=== PATIENT | male | born 1960 | race Caucasian/White ===

== ENCOUNTER 2017-11-20 16:25 | Inpatient (IN) | payer OTHER ==
[~2017-11-20 16:25] MED LIST: ISOVUE-370 76%-LOCM 1 ML ONE
[2017-11-20 16:56] LABS: #Eosinphils 0.1 thou/uL (0.0-0.7); #Lymphocytes 0.4 thou/uL (1.20-3.40); #Monocytes 0.3 thou/uL (0.11-0.59); #Neutrophils 8.6 thou/uL (1.40-6.50); %Basophils 0.3 % (0.0-1.0); %Eosinophils 0.8 % (0.0-10.0); %Lymphocytes 4.6 % (21.0-51.0); %Monocytes 3.2 % (0.0-10.0); %Neutrophils 91.1 % (42.0-75.0); Hemoglobin 16.5 g/dL (14.0-18.0); Mean Corpuscular HGB CONC 33.9 g/dL (32.0-36.0); Mean Corpuscular Volume 94.3 fl (80.0-94.0); Mean Platelet Volume 9.4 fL (7.4-10.4); Platelet Count 136 thou/uL (130-400); RBC Distribution Width 11.6 % (11.5-14.5); Red Blood Cell (RBC) Count 5.15 mill/uL (4.70-6.10); White Blood Cell (WBC) Count 9.4 thou/uL (4.8-10.8)
[2017-11-20 17:17] LABS: ALT (SGPT) 50 U/L (8-55); AST (SGOT) 24 U/L (5-34); Albumin 4.3 g/dL (3.5-5.0); Alkaline Phosphatase 78 U/L (40-150); Anion Gap 11 mmol/L (10-20); BUN (Urea Nitrogen) 14 mg/dL (8.4-25.7); Bilirubin, Total 0.6 mg/dL (0.2-1.2); CK (CPK) 104 U/L (30-200); Calc. Creatinine Clearance 0 mL/min (70-130); Calcium 9.3 mg/dL (7.8-10.44); Carbon Dioxide 26 mmol/L (22-29); Chloride 104 mmol/L (98-107); Estimated GFR-MDRD Greater than 90; Globulin 2.6 g/dL (2.4-3.5); Glucose 110 mg/dL (70-105); Lipase 13 U/L (8-78); Magnesium 1.9 mg/dL (1.6-2.6); Protein, Total 6.9 g/dL (6.0-8.3); Sodium 137 mmol/L (136-145)
--- NOTE | 2017-11-20 17:18 | RAD ---
RADIOGRAPH CHEST 1 VIEW: 11/20/17 HISTORY: 57-year-old male with cough and nausea. FINDINGS: There is no air space density, pulmonary edema, or pneumothorax. The lateral costophrenic angles are sharp. IMPRESSION: No acute pulmonary findings. ailyn [] POS: [facility]
[2017-11-20 17:21] LABS: CKMB 1.3 ng/mL (0-6.6); Troponin I 0.012 ng/mL (< 0.028)
[2017-11-20] MEDS ORDERED: Ondansetron HCl/PF 4 MG/2 ML Vial ONE (17:22)
[2017-11-20 18:55] LABS: Bilirubin Negative (Negative); Blood, Urine Negative (Negative); Clarity CLEAR (Clear); Glucose, Urine (Dipstick) Negative (Negative); Leukocyte Negative (Negative); Nitrite Negative (Negative); Protein, Urine (Dipstick) Negative (Neg-Trace); Urobilinogen 0.2 mg/dL (0.2-1.0); pH, Urine 5.5 (5.0-9.0)
--- NOTE | 2017-11-20 18:59 | CT ---
CT ANGIOGRAM THORAX WITH IV CONTRAST AND 3D RECONSTRUCTIONS 11/20/17 HISTORY: Nausea and diarrhea which started today. Elevated D-dimer. FINDINGS: The heart is mildly enlarged. The thoracic aorta is normal in caliber without evidence of an aortic d issection. No filling defects are seen in the pulmonary arteries to suggest a pulmonary embolus. There is bibasilar atelectasis. No discrete pulmonary nodule, mass or pleural effusion is seen in the lungs bilaterally. There is no evidence of lymphadenopathy. The visualized upper abdomen has a normal CT appearance. Degenerative changes are noted in the spine. IMPRESSION: 1. No CT evidence of a pulmonary embolus. 2. Mild cardiomegaly. POS: [facility]
[2017-11-20 19:05] LABS: Amphetamine Not Detected (NotDetected); Barbiturates Screen Not Detected (NotDetected); Benzodiazepine Screen Not Detected (NotDetected); Cocaine Metabolite Screen Not Detected (NotDetected); Medtox Control Line Valid? VALID (VALID); Medtox Reader # READER 1; Methadone Not Detected (NotDetected); Methamphetamine Not Detected (NotDetected); Opiate Screen Not Detected (NotDetected); Oxycodone Screen Not Detected (NotDetected); Phencyclidine (PCP) Not Detected (NotDetected); THC/Cannabinoid Screen Not Detected (NotDetected); Tricyclic Screen Not Detected (NotDetected)
[2017-11-20 19:50] LABS: Troponin I 0.017 ng/mL (< 0.028)
[2017-11-20] MEDS ORDERED: Ibuprofen 800 MG TAB ONE (20:22)
[2017-11-20] MEDS ORDERED: metroNIDAZOLE 500 MG/100 ML BAG ONE (20:22)
[2017-11-20 21:00] LABS: Free T4 (Free Thyroxine) 1.04 ng/dL (0.70-1.48); Thyroid Stimulating Hormone 1.4662 uIU/mL (0.35-4.94)
[2017-11-20] MEDS ORDERED: Acetaminophen 500 MG TAB ONE (21:40)
[2017-11-20] MEDS ORDERED: Guaifenesin DM 100-10/5 ML UDCUP PO PRN (22:02)
[2017-11-20] MEDS ORDERED: Calcium Carbonate 500 MG ChewTAB PO PRN (22:02)
[2017-11-20] MEDS ORDERED: Mag-Al 1200 mg/1200 mg/30 ML UDCUP PO PRN (22:02)
[2017-11-20] MEDS ORDERED: Acetaminophen 325 MG TAB PO PRN (22:02)
[2017-11-20] MEDS ORDERED: Ondansetron HCl/PF 4 MG/2 ML Vial IVP PRN (22:02)
[2017-11-20 22:42] LABS: Lactic Acid 0.9 mmol/L (0.5-2.2)
[2017-11-20] MEDS: Sodium Chloride 0.9% 1,000 ML IV SCH (23:27)
[2017-11-20] MEDS: Temazepam 15 MG CAP PO PRN (23:27)
--- NOTE | 2017-11-20 23:45 | HP ---
REASON FOR ADMISSION: Sepsis, acute gastroenteritis. HISTORY OF PRESENT ILLNESS: Patient gives history of having 3 large loose bowel movements from this morning. He had a fever of 99.8 degrees at home. Patient took 4 mg of Imodium in the morning and th en again 2 mg at 1:00 p.m. when the diarrhea continued. He has felt nauseated, but has not vomited. No blood in the stools. No recent intake of any antibiotics. He had gone for a skiing trip this to [place]. No family members have similar complaints at present. Patient has had colonos copy done 5 years back and had mild diverticulosis then. On arrival in ER, patient had temperature o f 102. He was given 2 liters of bolus fluids, still the temperature is around 101 degrees. No compl aints of cough or expectoration. No complaints of urinary tract symptoms including frequency or urge ncy. PAST MEDICAL AND SURGICAL HISTORY: Dyslipidemia on diet control, likely mild GERD, left shoulder roshan montserrat x2, appendectomy, prior colonoscopy done [address] Reza showed mild diverticulosis. CURRENT MEDICATIONS: Pepcid 20 mg p.r.n., Cialis 20 mg p.r.n., Tums p.r.n. ALLERGIES: PENICILLIN. PERSONAL HISTORY: Does not abuse alcohol or drugs. No history of smoking. FAMILY HISTORY: Mother is healthy. Father has had history of coronary artery disease and COPD. He is alive. Patient is , works as an ICU nurse here. REVIEW OF SYSTEMS: The following complete review of systems was negative, unless otherwise mentioned in the HPI or below: Constitutional: Weight loss or gain, ability to conduct usual activities. Sk in: Rash, itching. Eyes: Double vision, pain. ENT/Mouth: Nose bleeding, neck stiffness, pain, te nderness. Cardiovascular: Palpitations, dyspnea on exertion, orthopnea. Respiratory: Shortness of breath, wheezing, cough, hemoptysis, fever, or night sweats. Gastrointestinal: Poor appetite, abdo radha pain, heartburn, nausea, vomiting, constipation, or diarrhea. Genitourinary: Urgency, frequen cy, dysuria, nocturia. Musculoskeletal: Pain, swelling. Neurologic/Psychiatric: Anxiety, depressi on. Allergy/Immunologic: Skin rash, bleeding tendency. PHYSICAL EXAMINATION: GENERAL: Patient is a 57-year-old male who is currently not in any acute distress. VITAL SIGNS: Blood pressure on arrival was 162/98, currently 146/90, pulse 104 per minute, respirato ry rate 18 per minute, temperature on arrival was 102.4 degrees, saturating 98% on room air. NECK: Supple, no elevated JVD. HEENT: Extraocular muscles intact. Pupils are reacting to light. Oral cavity mucous membranes are dry. No exudates or congestion. CARDIOVASCULAR SYSTEM: S1, S2 heard, tachycardic, regular rhythm. RESPIRATORY SYSTEM: Air entry 1+ bilateral. No rales or rhonchi. ABDOMEN: Soft, bowel sounds heard. No tenderness, rigidity, or guarding. EXTREMITIES: No peripheral edema or calf tenderness. VASCULAR SYSTEM: Peripheral pulses 1+ bilateral, no ischemic ulcerations or gangrene. CENTRAL NERVOUS SYSTEM: No gross focal deficits seen. Patient is alert, awake, oriented well. PSYCHIATRIC SYSTEM: Patient's mood is euthymic. No hallucinations or delusions. LABORATORY DATA AND X-RAY FINDINGS: White count of 9, H&H 16 and 48, platelet count 136 with 91% jass trophils, MCV is 94. D-dimer is 0.96. Electrolytes stable. BUN 14, creatinine 0.8, glucose 110. L iver enzymes are within normal limits, total bilirubin 0.6, CK levels 104. Troponin x2 is negative. BNP is less than 10, albumin is 4.3, lipase is 13. Free T4 of 1.0. TSH 1.46. UA is negative for a [place] infection. Urine drug screen is negative. Influenza A and B antigens are negative. CT angio [address] st done shows no evidence of PE. There is mild cardiomegaly. CLINICAL IMPRESSION AND PLAN: Patient will be admitted to telemetry for acute gastroenteritis with s epsis and persistent fever of 102. He will get third liter of normal saline here in the ER, after wh ich patient will be on 100 mL per hour. He will be kept on clear liquid diet. Cipro Flagyl IV. St ool studies including C. diff and cultures. We will also obtain blood and urine cultures as well. W capo will continue to closely monitor him on telemetry.
[2017-11-21 00:41] VITALS: BMI 31.7
[2017-11-21] MEDS: metroNIDAZOLE 500 MG in Premix Bag 1 BAG IVPB SCH ×3 (05:11→21:32)
[2017-11-21 05:55] LABS: ALT (SGPT) 35 U/L (8-55); AST (SGOT) 16 U/L (5-34); Albumin 3.4 g/dL (3.5-5.0); Alkaline Phosphatase 57 U/L (40-150); Anion Gap 9 mmol/L (10-20); BUN (Urea Nitrogen) 11 mg/dL (8.4-25.7); Bilirubin, Total 0.4 mg/dL (0.2-1.2); Calc. Creatinine Clearance 156 mL/min (70-130); Calcium 8.2 mg/dL (7.8-10.44); Carbon Dioxide 22 mmol/L (22-29); Chloride 109 mmol/L (98-107); Estimated GFR-MDRD Greater than 90; Glucose 97 mg/dL (70-105); Potassium 3.9 mmol/L (3.5-5.1); Protein, Total 5.4 g/dL (6.0-8.3); Sodium 136 mmol/L (136-145)
[2017-11-21 06:27] LABS: #Eosinphils 0.1 thou/uL (0.0-0.7); #Lymphocytes 0.5 thou/uL (1.20-3.40); #Monocytes 0.6 thou/uL (0.11-0.59); #Neutrophils 3.8 thou/uL (1.40-6.50); %Basophils 0.1 % (0.0-1.0); %Eosinophils 1.8 % (0.0-10.0); %Lymphocytes 9.1 % (21.0-51.0); %Monocytes 11.1 % (0.0-10.0); %Neutrophils 77.9 % (42.0-75.0); Hemoglobin 13.7 g/dL (14.0-18.0); Mean Corpuscular HGB CONC 34.3 g/dL (32.0-36.0); Mean Corpuscular Hemoglobin 32.7 pg (27.0-31.0); Mean Corpuscular Volume 95.3 fl (80.0-94.0); Mean Platelet Volume 9.9 fL (7.4-10.4); PLT Morphology Comment Appears Decreased; Platelet Count 99 thou/uL (130-400); RBC Distribution Width 11.5 % (11.5-14.5); Red Blood Cell (RBC) Count 4.19 mill/uL (4.70-6.10); White Blood Cell (WBC) Count 4.9 thou/uL (4.8-10.8)
[2017-11-21] MEDS: Famotidine 20 MG TAB PO SCH ×2 (09:50→20:29)
[2017-11-21] MEDS: Enoxaparin Sodium 40 MG/0.4 ML SYRINGE SC SCH (09:52)
[2017-11-21] MEDS: Sodium Chloride 0.9% 1,000 ML IV SCH ×2 (10:10→17:52)
--- NOTE | 2017-11-21 10:38 | PDOC.PN ---
- Subjective Encounter Start Date: 11/21/17 Encounter Start Time: 09:40 Subjective: No complaint. -: No diarrhea, no vomiting, no abdominal pain. - Objective Resuscitation Status: Resuscitation Status FULL:Full Resuscitation Vital Signs & Weight: Vital Signs (12 hours) Temp Pulse Resp BP BP Pulse Ox 11/21/17 08:13 99.1 F 75 18 129/81 94 L 11/21/17 08:00 99.1 F 75 18 11/21/17 04:59 97.6 F 78 14 130/74 93 L 11/20/17 22:45 98.4 F 113 H 20 149/85 H 93 L Weight Weight 221 lb I&O: 11/20/17 11/21/17 11/22/17 06:59 06:59 06:59 Output Total 1400 Balance -1400 Result Diagrams: 11/21/17 04:39 11/21/17 04:39 Phys Exam - Physical Examination HEENT: sclera anicteric Neck: no JVD Respiratory: clear to auscultation bilateral Cardiovascular: RRR Gastrointestinal: soft, non-tender Musculoskeletal: no edema Neurological: moves all 4 limbs Psychiatric: A&O x 3 Dx/Plan (1) Sepsis Code(s): A41.9 - SEPSIS, UNSPECIFIED ORGANISM Status: Acute (2) Enteritis Code(s): K52.9 - NONINFECTIVE GASTROENTERITIS AND COLITIS, UNSPECIFIED Status : Acute (3) Dyslipidemia Code(s): E78.5 - HYPERLIPIDEMIA, UNSPECIFIED Status: Acute - Plan Blood culture so far negative, preliminary results. -: Continue antibiotics. -: Advance diet. -: Continue hydration. * .
[2017-11-21] MEDS: Temazepam 15 MG CAP PO PRN (21:37)
[2017-11-22] MEDS: metroNIDAZOLE 500 MG in Premix Bag 1 BAG IVPB SCH ×2 (05:38→13:09)
[2017-11-22] MEDS: Sodium Chloride 0.9% 1,000 ML IV SCH ×2 (05:41→13:27)
[2017-11-22] MEDS: Enoxaparin Sodium 40 MG/0.4 ML SYRINGE SC SCH (09:08)
[2017-11-22] MEDS: Famotidine 20 MG TAB PO SCH (09:08)
[2017-11-22] MEDS ORDERED: Loperamide HCl 2 MG CAP PO PRN (12:32)
--- NOTE | 2017-11-22 15:36 | DIS ---
DATE OF ADMISSION: 11/20/2017 DATE OF DISCHARGE: 11/22/2017 ADMITTING DIAGNOSIS: Acute gastroenteritis. DISCHARGE DIAGNOSIS: Acute viral gastroenteritis. SECONDARY DIAGNOSES: 1. Dehydration. 2. History of dyslipidemia. 3. History of gastroesophageal reflux disease. 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 The diarrhea continued and he felt nauseated, so jennifer scanlon decided to come to the hospital and has further evaluation. Patient had a C. diff toxin assay sent for stool which was negative initially on and patient continued to be on IV fluids with high gra de fever of 101. Patient had a good fluid resuscitation. His blood pressures remained stable in the following days. He did not have any bowel movement and on the day of the discharge, he started agai n having some bowel movements and he was already started on IV antibiotics with ciprofloxacin and Fla gyl. Patient had a repeat C. diff toxin assay, which was again came back negative, but his lactoferr in was positive, but patient did not have any fever and no white count elevation. The patient is sivakumar ssured and I explained that this could be a viral gastroenteritis and discharged the patient home and advised to rehydrate him with oral hydration. PHYSICAL EXAMINATION: On day of discharge: VITAL SIGNS: Blood pressures are 139/85, heart rate of 62, respiratory rate 17, saturation 94% on ro om air. GENERAL: The patient is moderately built and moderately nourished. Does not appears to be in acute distress. CARDIOVASCULAR: S1, S2 normal. No murmurs, rubs or gallops. LUNGS: Bilateral air entry was equal. No wheezing, no crackles. ABDOMEN: Distended, nontender, no guarding or rebound tenderness. Bowel sounds normal. MUSCULOSKELETAL: No calf tenderness. No pedal edema, no tenderness, no joint swelling. SKIN: No cyanosis, no erythema, no rash, no pallor. CENTRAL NERVOUS SYSTEM: Cranial examination II-XII intact. No focal deficits were noted. DISCHARGE MEDICATIONS: Home medication: Famotidine 20 mg p.o. daily. New medications are Imodium 2 mg tablet to take every 3-4 hours p.r.n. for 2-3 loose stools. DISCHARGE INSTRUCTIONS: Continue activity as tolerated. Advised to continue hydration and reassured the patient that patient could have persistent stools for another 1-2 days, but he is getting more d ehydrated. Advised to return back to the ER for IV fluids. Advised to continue diet as tolerated, but advised to stick to less diarrhea diet. I spent 35 minutes of this patient.
[2017-11-22 18:08] VITALS: BP 142/78; TEMP 97.7
--- NOTE | 2017-11-27 15:13 | EKG ---
Test Reason : Blood Pressure : / mmHG Vent. Rate : 112 BPM Atrial Rate : 112 BPM P-R Int : 172 ms QRS Dur : 086 ms QT Int : 312 ms P-R-T Axes : 043 -03 035 degrees QTc Int : 425 ms Sinus tachycardia Possible Left atrial enlargement Borderline ECG Confirmed by AYSHA MCCULLOUGH ([id number]), video effects editor MAURO BRADLEY ([id number]) on 11/27/2017 3:12:46 PM Referred By: Confirmed By:AYSHA MCCULLOUGH
== END 2017-11-22 16:10 | disposition home or self-care (01) | DRG 872 ==
LOC: ERS 16:25 → 2NO 21:55
PROVIDERS: ADMIT Internal Medicine; ATTEND Internal Medicine
DX: A41.89 Other specified sepsis (principal); A08.39 Other viral enteritis; E78.5 Hyperlipidemia, unspecified; K57.90 Diverticulosis of intestine, part unspecified, without perforation or abscess without bleeding; K21.9 Gastro-esophageal reflux disease without esophagitis; Z88.0 Allergy status to penicillin; E86.0 Dehydration
CPT/HCPCS: 36415; 51701; 71045; 71275; 80053; 80306; 81003; 82553; 83605; 83630; 83690; 83735; 83880; 84439; 84443; 84484; 85025; 85379; 87040; 87045; 87046; 87086; 87324; 87449; 87804; 87899; 93005; 96361; 96365; 96367; 96375; J0696; J0744; J1650; J1956; J2405

== ENCOUNTER 2022-10-02 14:48 | Day surgery (SDC) | payer OTHER ==
[2022-10-02] MEDS ORDERED: Phenylephrine 2.5% Ophth Soln 5 ML BOT EA EYE SCH (15:15)
[2022-10-02] MEDS ORDERED: Cyclopentolate 1% Opth Drop 2 ML BOT EA EYE SCH (15:15)
[2022-10-02] MEDS ORDERED: Phenylephrine 2.5% Ophth Soln 5 ML BOT ONE (15:34)
[2022-10-02] MEDS ORDERED: Cyclopentolate 1% Opth Drop 2 ML BOT ONE (15:34)
[2022-10-02] MEDS ORDERED: Midazolam HCl 2 mg/2 ml Vial ONE (16:47)
[2022-10-02] MEDS ORDERED: Fentanyl 250 MCG/5 ML VIAL ONE (16:47)
[2022-10-02] MEDS ORDERED: Fluorouracil 100 MG, Enoxaparin 25 MG, EPINEPHrine 0.3 MG in Ophthalmic Irrigation Solu... IRR SCH (17:00)
[2022-10-02] MEDS ORDERED: Ondansetron PF 4 MG/2 ML Vial ONE (17:12)
[2022-10-02] MEDS ORDERED: Dexamethasone 20 MG/5 ML VIAL ONE (17:12)
[2022-10-02] MEDS ORDERED: CEFAZOLIN 1 GM VIAL ONE (17:12)
[2022-10-02] MEDS ORDERED: PROPOFOL 200 MG/20 ML VIAL ONE (17:12)
[2022-10-02] MEDS ORDERED: Triamcinolone 40 MG/ML VIAL ONE (17:12)
[2022-10-02] MEDS ORDERED: Maxitrol 0.1% Opth Oint 3.5 GM TUBE ONE (17:12)
[2022-10-02] MEDS ORDERED: ePHEDrine 50 MG/ML VIAL ONE (17:12)
[2022-10-02] MEDS ORDERED: Bupivacaine 0.75% 10 ML VIAL ONE (17:12)
[2022-10-02] MEDS ORDERED: Lidocaine 4% PF 5 ML AMP ONE (17:12)
[2022-10-02] MEDS ORDERED: Lidocaine 1% PF 5 ML VIAL ONE (17:12)
[2022-10-02] MEDS ORDERED: HYDROcodone/Acetaminophen 5/325 mg Tablet ONE (19:22)
== END 2022-10-02 19:50 | disposition home or self-care (01) ==
LOC: SDC 14:48
PROVIDERS: ATTEND Ophthalmology Retina Specialist
PROC: 08T43ZZ Resection of Right Vitreous, Percutaneous Approach (ICD-10-PCS; principal; 2022-10-02)
PROC: 08T53ZZ Resection of Left Vitreous, Percutaneous Approach (ICD-10-PCS; principal; 2022-10-02)
DX: H33.011 Retinal detachment with single break, right eye (principal); H33.312 Horseshoe tear of retina without detachment, left eye; Z88.0 Allergy status to penicillin
CPT/HCPCS: 67025; J0171; J0690; J1100; J1650; J2250; J2405; J2704; J3010; J3301; J3490; J9190